=== PATIENT | female | born 1955 | race Caucasian/White ===

== ENCOUNTER 2019-08-29 13:52 | Emergency (ER) | payer OTHER ==
[~2019-08-29] VITALS: Ht 167.6 cm; Wt 108.9 kg
[~2019-08-29 13:52] MED LIST: ALBU90OI6 INH; Aspir 8181 MG PO; HYDCHL25 PO; Hard Nails2500 MCG PO; Ibuprofen Ib200 MG PO; LEVSOD75 PO; OXYB5 PO; Tessalon200 MG PO
[2019-08-29] MEDS ORDERED: VALA500 PO (14:47)
[2019-08-29] MEDS ORDERED: Prednisone20 MG PO (14:47)
== END 2019-08-29 15:00 | disposition home or self-care (01) ==
LOC: ER 13:52
DX: G51.0 Bell's palsy (principal); Z79.899 Other long term (current) drug therapy; Z79.82 Long term (current) use of aspirin
CPT/HCPCS: 99283; J7512

== ENCOUNTER 2019-10-09 11:28 | Emergency (ER) | payer OTHER ==
[~2019-10-09] VITALS: Ht 167.6 cm; Wt 106.6 kg
[~2019-10-09 11:28] MED LIST changes: +Prednisone20 MG PO; +VALA500 PO
[2019-10-09 12:42] LABS: BASOPHILS ABSOLUTE AUTO 0.04 K/mm3 (0.00-0.23); BASOPHILS PERCENT AUTO 0 % (0-2); EOSINOPHILS ABSOLUTE AUTO 0.27 K/mm3 (0.00-0.68); EOSINOPHILS PERCENT AUTO 2 % (0-6); Hematocrit 39.7 % (33.0-51.0); Hemoglobin 12.8 g/dL (11.5-16.0); IMMATURE GRAN ABSOLUTE AUTO 0.06 K/mm3 (0.00-0.10); IMMATURE GRAN PERCENT AUTO 1 % (0-1); LYMPHOCYTES ABSOLUTE AUTO 1.54 K/mm3 (0.84-5.20); LYMPHOCYTES PERCENT AUTO 13 % (21-46); MONOCYTES PERCENT AUTO 9 % (4-13); Mean Corpuscular HGB 28.6 pg (26.0-34.0); Mean Corpuscular HGB Conc 32.2 g/dL (31.5-36.5); Mean Corpuscular Volume 89 fL (80-100); Mean Platelet Volume 9.6 fL (9.1-12.4); NEUTROPHILS ABSOLUTE AUTO 9.18 K/mm3 (1.96-9.15); NEUTROPHILS PERCENT AUTO 75 % (41-73); Platelet Count 184 K/mm3 (150-400); RDW Coefficient Variation 14.1 % (11.7-14.2); RDW Standard Deviation 45.8 fL (35.1-46.3); Red Blood Cell Count 4.47 M/mm3 (3.80-5.20); White Blood Cell Count 12.19 K/mm3 (4.00-11.30)
[2019-10-09 12:52] LABS: Alanine Aminotransfer (ALT/SGP 18 U/L (12-78); Albumin, Blood 3.4 g/dL (3.4-5.0); Albumin/Globulin Ratio 0.7 (0.8-1.8); Alk Phos 108 U/L (50-136); Anion Gap 5 mmol/L (6-16); Aspartate Aminotrans (AST/SGOT 13 U/L (12-37); Bilirubin, Total 0.7 mg/dL (0.1-1.0); Blood Urea Nitrogen 9 mg/dL (8-24); Bun/Creatinine Ratio 12.7 (12.0-20.0); CO2, Blood 30 mmol/L (21-32); Chloride, Blood 97 mmol/L (98-108); Creatinine, Blood 0.71 mg/dL (0.40-1.00); Globulin, Blood 4.8 g/dL (2.2-4.0); Glomerular Filtration Rate >60 (60-); Glucose, Blood 213 mg/dL (70-99); Potassium, Blood 3.5 mmol/L (3.5-5.5); Sodium, Blood 132 mmol/L (136-145); Total Protein, Blood 8.2 g/dL (6.4-8.2)
[2019-10-09] MEDS ORDERED: METR500 PO (14:03)
[2019-10-09] MEDS ORDERED: CEFD300 PO (14:03)
[2019-10-09] MEDS ORDERED: Norco 7.5-3251 EACH PO (14:03)
== END 2019-10-09 14:34 | disposition home or self-care (01) ==
LOC: ER 11:28
PROVIDERS: Emergency Medicine
DX: L03.317 Cellulitis of buttock (principal); L03.315 Cellulitis of perineum; Z88.5 Allergy status to narcotic agent; Z88.1 Allergy status to other antibiotic agents; Z88.8 Allergy status to other drugs, medicaments and biological substances; Z79.82 Long term (current) use of aspirin; Z79.899 Other long term (current) drug therapy; Z79.52 Long term (current) use of systemic steroids; E11.9 Type 2 diabetes mellitus without complications
CPT/HCPCS: 36415; 72193; 80053; 85025; 96365; 96367; 99283-25; J0692; Q9967

== ENCOUNTER → 2020-06-29 | Outpatient (CLI) | payer OTHER ==
[~2020-06-29] MED LIST changes: +CEFD300 PO; +METR500 PO; +Norco 7.5-3251 EACH PO
== END | disposition home or self-care (01) ==
LOC: LAB 17:00 → LAB SHORT 17:00
DX: L02.31 Cutaneous abscess of buttock (principal)
CPT/HCPCS: 87070; 87075; 87077; 87147; 87186; 87205

== ENCOUNTER 2024-01-23 07:04 | Day surgery (SDC) | payer OTHER ==
[~2024-01-23] VITALS: Ht 167.6 cm; Wt 112.1 kg
[2024-01-23] VITALS (10 sets, daily range): BP systolic 118–137; BP diastolic 67–85
[~2024-01-23 07:04] MED LIST changes: +Acetaminophen 500 MG Tab PO SCH; +Chlorhexidine Mouth Care 15 ML UDC MT SCH; +GLIP5 PO; +Lactated Ringer's 1,000 ML IV SCH; +OZEMPIC0.25 MG/02 SC; +QVAR REDIHALE10.6 G2 IH; +Ropivacaine 0.5% HCl/Pf 123.125 MG,EPINEPHrine HCL 0.25 MG,Ketorolac Tromethamine 15 MG... INFIL SCH; +SOLIFENACIN SUCC5 MG PO; +Sanctura20 MG PO; +TRAZ100 PO; +Tranexamic Acid 100 ML IV SCH
[2024-01-23] MEDS ORDERED: OxyCODONE HCL 10 MG TABCR PO SCH (07:30)
[2024-01-23] MEDS ORDERED: CeFAZolin Sodium 2,000 MG in NS 100 ML IV SCH ×2 (07:30→16:00)
[2024-01-23] MEDS ORDERED: propofoL 100 ML IV ONE (08:43)
[2024-01-23] MEDS ORDERED: Midazolam HCl 1MG / ML 2ML Vial ONE (08:45)
[2024-01-23] MEDS ORDERED: FentaNYL Citrate 50 MCG/ML 2 ML Injection ONE ×2 (08:53→09:08)
[2024-01-23] MEDS ORDERED: Dexamethasone Sod Phos 10 MG/ML 1ML VIAL ONE (09:08)
[2024-01-23] MEDS ORDERED: Phenylephrine HCl 100 MCG/ML-NS 10MLSYR (1MG/10ML) ONE (09:08)
[2024-01-23] MEDS ORDERED: Ondansetron HCl 2 MG / ML 2ML Vial ONE (09:08)
[2024-01-23] MEDS ORDERED: Labetalol HCL 5 MG/ML 4ML Injection (Single Dose) ONE (09:30)
[2024-01-23] MEDS ORDERED: Bisacodyl 10 MG Supp PR PRN (09:35)
[2024-01-23] MEDS ORDERED: Promethazine HCl 25 MG Tab PO PRN (09:35)
[2024-01-23] MEDS ORDERED: Ondansetron HCl 2 MG / ML 2ML Vial IV PRN (09:40)
[2024-01-23] MEDS ORDERED: Magnesium Hydroxide Conc 10 ML UDC PO PRN (09:40)
[2024-01-23] MEDS ORDERED: FLU VACC TS2024-25(6MOS UP)/PF 45 MCG/0.5 ML SYRINGE IM SCH (09:40)
[2024-01-23] MEDS ORDERED: Lactated Ringer's 1,000 ML IV SCH (09:40)
[2024-01-23] MEDS ORDERED: Metoclopramide HCl 5MG / ML 2ML Vial IV PRN (09:40)
[2024-01-23] MEDS ORDERED: OxyCODONE HCL 5 MG TAB PO PRN ×2 (09:45)
[2024-01-23] MEDS ORDERED: HYDROmorphone HCl/Pf 1MG SYR IV PRN (09:50)
[2024-01-23] MEDS ORDERED: HYDROmorphone HCl/Pf 1MG SYR ONE ×2 (10:12→10:17)
[2024-01-23] MEDS ORDERED: Mometasone Furoate Inhaler 220 mcg 14 ACT INH SCH (10:40)
[2024-01-23] MEDS ORDERED: Insulin Regular 100 UNIT/ML 10ML Vial SC SCH (11:30)
--- NOTE | 2024-01-23 11:40 | NUR ---
ARRIVAL TO UNIT PATIENT TRANSFERRED TO UNIT FROM PACU AT APPROX 1105. PATIENT LETHARGIC, EASILY AROUSABLE WITH VERBAL STIMULI. DENIES PAIN. EXPRESSING DESIRE TO SLEEP - DOES NOT WANT TO EAT OR DRINK ANYTHING AT THIS TIME. IVF INITIATED PER EMAR. VSS. CURRENTLY ON 2L VIA NC, SATs >90%. RR EVEN, UNLABORED. LUNG SOUNDS CLEAR. S/P L TKA - ANGELITA WRAP OVER DRESSING C/D/I, NO SHADOWING NOTED. COOLING DEVICE IN PLACE. ABLE TO FOLLOW COMMANDS, WIGGLE TOES. PPP. DENIES NUMBNESS/TINGLING. CBG OBTAINED. CALL LIGHT IN REACH.
[2024-01-23] MEDS ORDERED: Ketorolac Tromethamine 15mg Vial IV SCH (12:00)
[2024-01-23] MEDS ORDERED: ELIQUIS2.5 MG PO (14:23)
--- NOTE | 2024-01-23 15:11 | NUR ---
DISCHARGE NOTE PATIENT CLEARED FOR DISCHARGE HOME BY PHYSICAL THERAPY. NO ACUTE CHANGES SINCE PREVIOUS DOCUMENTATION. RECEPTIVE TO EDUCATION, ASKS QUESTIONS NEEDED TO GAIN FURTHER UNDERSTANDING. VSS. TOLERATING ROOM AIR, SATs >90%. RR EVEN, UNLABORED. POST OP PAIN TOLERABLE WITHOUT PRESCRIBED MEDICATION. USING COOLING DEVICE APPROPRIATELY. TOLERATING PO INTAKE. VOIDING. IV REMOVED. PERSONAL BELONGINGS AND COOLING DEVICE WITH PATIENT. PATIENT TRANSFERRED OFF UNIT TO PERSONAL VEHICLE VIA WHEELCHAIR AT APPROX 1510.
[2024-01-23] MEDS ORDERED: Acetaminophen 500 MG Tab PO SCH (16:00)
[2024-01-23] MEDS ORDERED: Trospium Chloride 20 MG Tab PO SCH (16:30)
[2024-01-23] MEDS ORDERED: Docusate Sodium 100 MG Cap PO SCH (21:00)
[2024-01-23] MEDS ORDERED: GlipiZIDE 10 MG Tab PO SCH (21:00)
[2024-01-23] MEDS ORDERED: TraZODone HCl 100 MG Tab PO SCH (21:00)
[2024-01-23] MEDS ORDERED: Apixaban 5 MG Tab PO SCH (21:00)
[2024-01-24] MEDS ORDERED: Levothyroxine Sodium 0.075 MG Tab PO SCH (06:00)
[2024-01-24] MEDS ORDERED: SEMAGLUTIDE 0.25 MG SC SCH (12:00)
== END 2024-01-23 15:10 | disposition home or self-care (01) ==
LOC: ORSCMMR 07:04 → ORD 08:15 → ORSCMMR 08:15 → SURS 11:05 → ORSCMMR 15:10 → ORD 01-25 10:15
PROVIDERS: Orthopaedic Surgery
PROC: 0SRD0JA Replacement of Left Knee Joint with Synthetic Substitute, Uncemented, Open Approach (ICD-10-PCS; principal; 2024-01-23 08:15)
DX: M17.12 Unilateral primary osteoarthritis, left knee (principal); I10 Essential (primary) hypertension; G47.33 Obstructive sleep apnea (adult) (pediatric); E11.9 Type 2 diabetes mellitus without complications; E03.9 Hypothyroidism, unspecified; E78.5 Hyperlipidemia, unspecified; Z79.82 Long term (current) use of aspirin; Z79.899 Other long term (current) drug therapy
CPT/HCPCS: 73560-LT; 82947; 97110; 97116; 97161; 97530; A9270; C1776; J0171; J0690; J0735; J1100; J1171; J1815; J1885; J2250; J2371; J2405; J2704; J2795; J3010; J7120